=== PATIENT | female | born 1980 | race Caucasian/White ===

== ENCOUNTER 2022-02-18 16:12 | Emergency (ER) | payer SELFPAY ==
[~2022-02-18] VITALS: Ht 172.7 cm; Wt 78.0 kg
[2022-02-18 19:02] LABS: BASOPHILS % 0.9 % (0.0-2.0); EOSINOPHILS % 0.4 % (0.0-5.0); HEMATOCRIT. 38.9 % (36.0-48.0); HEMOGLOBIN. 12.5 g/dL (12.0-16.0); LYMPHOCYTES % 23.7 % (20.0-50.0); MEAN CORPUSCULAR VOLUME 81.1 fL (81.0-99.0); MONOCYTES % 5.6 % (2.0-8.0); NEUTROPHILS % 69.4 % (40.0-76.0); PLATELET 468 x1000/uL (130-400); RED CELL DISTRIBUTION WIDTH 15.7 % (11.6-14.6)
[2022-02-18 19:05] LABS: CHLORIDE 109 mEq/L (98-107)
[2022-02-18 19:11] LABS: HCG SCREEN NEGATIVE
[2022-02-18 19:27] LABS: ETHANOL BLOOD 298 mg/dL
[2022-02-19 01:24] VITALS: BP 128/61
== END 2022-02-19 01:30 | disposition home or self-care (01) ==
LOC: ER 16:12
DX: F10.129 Alcohol abuse with intoxication, unspecified (principal); Y90.8 Blood alcohol level of 240 mg/100 ml or more
CPT/HCPCS: 36415; 76705; 80053; 80320; 84703; 85025; 99284; G0480